=== PATIENT | female | born 1995 | race American Indian/Alaskan Native ===

== ENCOUNTER 2017-06-20 07:48 | Outpatient (CLI) | payer MEDICAID ==
[2017-06-20] MEDS ORDERED: VISTARIL PO PRN (10:36)
[2017-06-20 23:27] VITALS: BP 114/64
== END 2017-06-20 10:45 | disposition home or self-care (01) ==
LOC: TRG 07:48
PROVIDERS: ATTEND Obstetrics & Gynecology
DX: O47.1 False labor at or after 37 completed weeks of gestation (principal); Z3A.39 39 weeks gestation of pregnancy
CPT/HCPCS: 59025; Q0177

== ENCOUNTER 2017-06-20 17:08 | Inpatient (IN) | payer MEDICAID ==
[2017-06-20] MEDS ORDERED: BRETHINE SUB-Q PRN (17:45)
[2017-06-20] MEDS ORDERED: ZOFRAN IV PRN (17:45)
[2017-06-20] MEDS ORDERED: STADOL IV PRN (17:45)
[2017-06-20] MEDS ORDERED: XYLOCAINE 2% INFILTRATI NR (17:45)
[2017-06-20] MEDS ORDERED: MINERAL OIL PO PRN (17:45)
[2017-06-20] MEDS ORDERED: SUBLIMAZE IV PRN (17:45)
[2017-06-20] MEDS ORDERED: ePHEDrine SULFATE IV PRN (17:45)
--- NOTE | 2017-06-20 17:50 | History and Physical Report ---
History of Present Illness Date of examination: 06/20/17 Chief complaint: Labor and leaking fluid, 4cms (was 1.5 cms this morning) History of present illness: EDC Calculations by LMP: 06/27/2017 Past History : 2 Term Births: 0 Premature Births: 0 Living Children: 0 Para: 0 Mult. Births: 0 Prev : 0 Prev. attempt? 0 Aborta: 1 Elect. Ab: 0 Ectopics: 1 # 1 Delivery date: 2014 Delivery type: ectopic Delivery location: [facility] [place] Comments: methotrexate Past Medical History: Ectopic : 2014, Treated with methotrexate at [facility] Past Surgical History: negative Past Medical History Anesthesia Complications: negative Anemia: positive Autoimmune Disorder: negative Bleeding Disorder: negative Blood Transfusions: negative Breast Disease: negative Diabetes: negative Heart Disease: negative Hypertension: negative Hepatitis/Liver Disease: negative Kidney Disease/UTI: negative Neurologic/Epilepsy/Migraines: negative Phlebitis/Varicosities: negative Psychiatric: negative Pulmonary Disease/Asthma: negative Thyroid Disease: negative Hospitalizations: negative Surgery (Non-credit risk analyst): negative Abnormal PAP: negative, No pap- too young MAZIN Exposure: negative Infertility: negative Uterine Anomaly: negative Uterine Surgery (not C/S): negative Other Gynecologic Problems: negative Family Hx: no known family health hx - all healthy Social Hx: Single No ETOH, drugs or smoking Infection History Hx of STD: none HIV Risk Eval: no Hepatitis B Risk Eval: low risk Personal hx. of genital herpes: no Partner hx. of genital herpes: no Rash, Viral, or Febrile illness since last LMP? no Varicella/Chicken Pox Status: Unknown Genetic History Congenital Heart Defect: Mom: no Dad: no Moriah Disease: Mom: no Dad: no Thalassemia Mom: no Dad: no Neural Tube Defect Mom: no Dad: no Down's Syndrome Mom: no Dad: no Cirilo-Sachs Mom: no Dad: no Sickle Cell Disease/Trait Mom: no Dad: no Hemophilia Mom: no Dad: no Muscular Dystrophy Mom: no Dad: no Cystic Fibrosis Mom: no Dad: no [place] Chorea Mom: no Dad: no Mental Retardation Mom: no Dad: no Fragile X Mom: no Dad: no Other Genetic/Chromosomal Disorder Mom: no Dad: no Child w/other defect Mom: no Dad: no Enviromental Exposures Xray Exposure: no Medication, drug, or alcohol use since LMP: no Chemical/Other Exposure: no Exposure to Cat Liter: no Hx of Parvovirus (Fifth Disease): no Occupational Exposure to Children: none Active Medications: None Current Allergies (reviewed today): No known allergies Past History Past Medical History: no pertinent history Past Surgical History: no surgical history Social history: single - Obstetrical History Expected Date of Delivery: 06/27/17 Actual Gestation: 39 Week(s) 0 Day(s) : 2 Para: 0 Hx # Term Pregnancies: 0 Number of Pregnancies: 0 Spontaneous Abortions: 1 (ectopic) Induced : 0 Number of Living Children: 0 Medications and Allergies Allergies Allergy/AdvReac Type Severity Reaction Status Date / Time No Known Allergies Allergy Unverified 06/20/17 07:54 Home Medications Medication Instructions Recorded Confirmed Last Taken Type No Known Home Medications [No 06/20/17 06/20/17 Unknown History Reported Home Medications] Review of Systems All systems: negative - Physical Exam Breasts: Positive: normal Cardiovascular: Regular rate Lungs: Positive: Clear to auscultation, Normal air movement Abdomen: Positive: normal appearance, soft, normal bowel sounds Genitourinary (Female): Positive: normal external genitalia, normal perenium Vulva: both: normal Vagina: Positive: normal moisture Uterus: Positive: normal size, normal contour Anus/Rectum: Positive: normal perianal skin Extremities: Positive: normal Deep Tendon Reflex Grade: Normal +2 - Obstetrical Cervical Dilatation: 4 Cervical Effacement Percentage: 90 station: -1 Uterine Contraction Pattern: Regular Uterine Tone Measurement Phase: Contraction Uterine Contraction Intensity: Mild Results All other labs normal. Assessment and Plan 21y/o @ 39+1 weeks, second visit to triage today with ctx and now leaking amniotic fluid. GBS negative. Admission orders in chart. Dr. regalado aware. - Patient Problems (1) Cystic fibrosis carrier Current Visit: Yes Status: Acute Plan to address problem: FOC has not been tested to be evaluated after delivery (2) Active labor at term Current Visit: Yes Status: Acute (3) 39 weeks gestation of Current Visit: Yes Status: Acute
[2017-06-20] MEDS ORDERED: LACTATED RINGERS 1,000 ML IV SCH (18:00)
[2017-06-20] MEDS ORDERED: PITOCin/NS 30 UNIT/500ML 30 UNITS/500 ML BAG IV SCH (18:00)
[2017-06-20] MEDS ORDERED: PITOCin/NS 20 UNIT/1000ML DRIP 20 UNITS/1,000 ML BAG IV SCH (18:00)
[2017-06-20 19:29] LABS: Hematocrit 37.6 % (30.3-42.9); Hemoglobin 12.1 gm/dl (10.1-14.3); Mean Corpuscular HGB Conc 32 % (30-34); Mean Corpuscular Hemoglobin 29 pg (28-32); Mean Corpuscular Volume 90 fl (79-97); Platelet Count 245 K/mm3 (140-440); Red Blood Count 4.18 M/mm3 (3.65-5.03); Red Cell Distribution Width 13.5 % (13.2-15.2); White Blood Count 15.5 K/mm3 (4.5-11.0)
[2017-06-20] MEDS ORDERED: NARCAN 2 MG/2 ML IV PRN (20:35)
--- NOTE | 2017-06-20 20:35 | Anesthesia Consultation ---
Anesthesia Consult and Med Hx Date of service: 06/20/17 - Airway Anesthetic Teeth Evaluation: Good ROM Head & Neck: Adequate Mental/Hyoid Distance: Adequate Intubation Access Assessment: Probably Good - Pulmonary Exam CTA: Yes - Cardiac Exam Cardiac Exam: RRR - Pre-Operative Health Status ASA Pre-Surgery Classification: ASA2, Emergency Proposed Anesthetic Plan: Epidural, Spinal - Pulmonary Hx Asthma: No COPD: No Hx Pneumonia: No - Cardiovascular System Hx Hypertension: No - Central Nervous System Hx Seizures: No Hx Psychiatric Problems: No - Endocrine Hx Renal Disease: No Hx End Stage Renal Disease: No Hx Hypothyroidism: No Hx Hyperthyroidism: No - Hematic Hx Anemia: No Hx Sickle Cell Disease: No - Other Systems Hx Alcohol Use: No
[2017-06-20] MEDS ORDERED: fentaNYL-BUPIV 2 MCG/ML-0.125% 200 MCG/100 ML BAG EPIDURAL SCH (21:00)
--- NOTE | 2017-06-20 22:07 | Procedure Note ---
OB Delivery Note - Delivery Date of Delivery: 06/20/17 ( male) [facility] Specialist: ALEXEI BORJA Estimated blood loss: 200cc - Vaginal Delivery presentation: vertex Delivery position: OA Intrapartum events: meconium Delivery induction: none Delivery monitor: external FHT, external uterine Route of delivery: Delivery placenta: spontaneous Delivery cord: 3 umbilical vessels Episiotomy: none Delivery laceration: none Anesthesia: epidural Delivery comments: male del over intact perineum, handed to NICU after cord clamp to assess d/t mec stained fluid. Placenta del intact and complete, mec stained. Pit to IVF. Fundus firm, bleeding scant. no lacerations to repair. EBL 200, wt 5 #11oz, apgars 8/9. mother and infant remain LDR stable. - Infant A at 1 minute: 8 at 5 minutes: 9 Gender: Male (5#11)
[2017-06-21] MEDS ORDERED: MILK OF MAGNESIA PO PRN (00:10)
[2017-06-21] MEDS ORDERED: TYLENOL PO PRN (00:10)
[2017-06-21] MEDS ORDERED: PHENERGAN PO PRN (00:10)
[2017-06-21] MEDS ORDERED: SODIUM CHLORIDE FLUSH SYRINGE 10 ML IV NR (00:10)
[2017-06-21] MEDS ORDERED: NORCO 5/325 PO PRN (00:10)
[2017-06-21] MEDS ORDERED: DULCOLAX PR PRN (00:10)
[2017-06-21] MEDS ORDERED: BENADRYL PO PRN (00:10)
[2017-06-21] MEDS ORDERED: PITOCin/NS 20 UNIT/1000ML DRIP 20 UNITS/1,000 ML BAG IV SCH (00:10)
[2017-06-21] MEDS ORDERED: LANSINOH TP PRN (00:10)
[2017-06-21] MEDS ORDERED: TUCKS PAD TP PRN (00:10)
[2017-06-21] MEDS: MOTRIN PO SCH ×4 (00:50→23:52)
[2017-06-21 10:31] LABS: Hematocrit 33.5 % (30.3-42.9); Hemoglobin 11.1 gm/dl (10.1-14.3)
--- NOTE | 2017-06-21 12:51 | Progress Note ---
Assessment and Plan - Patient Problems (1) (normal spontaneous vaginal delivery) Current Visit: Yes Status: Acute Plan to address problem: -routine pp care -d/c home in am Subjective - Subjective Date of service: 06/21/17 Principal diagnosis: PPD#1 s/p Interval history: Pt doing well. All questions regarding circ were addressed and answered. Patient reports: appetite normal, voiding normally, pain well controlled : doing well Objective - Vital Signs Latest vital signs: Vital Signs Temp Pulse Resp BP Pulse Ox 06/21/17 08:00 98.5 F 77 18 111/58 06/21/17 04:00 98.6 F 71 18 118/64 06/21/17 00:00 98.6 F 63 16 119/74 06/20/17 23:25 97.8 F 97 H 16 114/64 06/20/17 22:30 97.7 F 87 18 128/61 99 06/20/17 22:15 98.0 F 87 18 133/62 99 06/20/17 22:00 97.7 F 103 H 18 136/84 99 06/20/17 19:34 98.3 F 98 H 19 120/80 99 Intake and Output 06/20/17 06/21/17 06/21/17 22:59 06:59 14:59 Intake Total 801 320 Output Total 1000 Balance -199 320 Intake: IV 251 PITOCin/NS 20 UNIT/1000ML 251 DRIP 20 units In 1,000 ml @ 125 mls/hr IV DIRECT RAINE Rx#:[id number] Oral 250 320 Intake, Free Water 300 Output: Urine 1000 Void 1000 Other: Total, Intake Amount 250 320 Total, Output Amount 400 # Voids Void 1 1 # Bowel Movements 0 Weight 58.513 kg Estimated Blood Loss 200 - Exam Breasts: Present: deferred Cardiovascular: Present: Normal S1, Normal S2 Lungs: Present: Clear to auscultation, Normal air movement Abdomen: Present: normal appearance, soft, normal bowel sounds. Absent: distention, tenderness, guarding Uterus: Present: normal, firm, fundal height below umbilicus. Absent: bogginess , tenderness Extremities: Present: normal Deep Tendon Reflex Grade: Normal +2 - Labs Labs: Abnormal lab results 06/20/17 Range/Units 19:09 WBC 15.5 H (4.5-11.0) K/mm3
[2017-06-21] MEDS: PRENATAL VITAMIN PO SCH (14:10)
[2017-06-21] MEDS: COLACE PO SCH ×2 (14:10→23:52)
[2017-06-21] MEDS ORDERED: BOOSTRIX IM ONE (22:08)
[2017-06-22] MEDS: MOTRIN PO SCH ×2 (06:51→11:23)
[2017-06-22] MEDS: PRENATAL VITAMIN PO SCH (11:22)
[2017-06-22] MEDS: COLACE PO SCH (12:11)
--- NOTE | 2017-06-22 13:18 | Discharge Summary ---
Providers - Providers Date of Admission: 06/20/17 17:44 Date of discharge: 06/22/17 Attending physician: LAUREN MAGANA Primary care physician: LAUREN MAGANA Hospitalization Reason for admission: other (see h&P) Delivery: Procedure details: see delivery note Episiotomy: other (see delivery note) Laceration: other (see delivery note) Incision: dry complications: none Discharge diagnosis: IUP at term delivered baby: male Hospital course: pt s/p . s/p routine pp care that was not complicated. Pt d/c home ppd#2. Condition at discharge: Good Disposition: DC-01 TO HOME OR SELFCARE - Discharge Diagnoses (1) (normal spontaneous vaginal delivery) Status: Acute Plan - Discharge Medications Prescriptions: Ibuprofen [Motrin 800 MG tab] 800 mg PO Q8HR PRN #30 tablet PRN Reason: Pain Lidocain2.5%/Prilocai2.5% [Emla] 5 gm TP ONCE PRN #1 tube PRN Reason: Pain - Provider Discharge Summary Additional instructions: [] Smoking cessation referral if applicable(refer to patient education folder for contact #) [] Refer to [facility] Booklet Call your doctor immediately for: * Fever > 100.5 * Heavy vaginal bleeding ( >1 pad per hour) * Severe persistent headache * Shortness of breath * Reddened, hot, painful area to leg or breast * Drainage or odor from incision. * Keep incision clean and dry at all times and follow doctor's instructions regarding bathing/showering - Follow up plan Follow up: LAUREN MAGANA MD [Primary Care Provider] - 7 Days
[2017-06-22 17:16] VITALS: BP 136/86
== END 2017-06-22 15:44 | disposition home or self-care (01) | DRG 775 ==
LOC: TRG 17:08 → LD 17:44 → OB 23:48
PROVIDERS: ADMIT Obstetrics & Gynecology; ATTEND Obstetrics & Gynecology
PROC: 10E0XZZ Delivery of Products of Conception, External Approach (ICD-10-PCS; principal; 2017-06-20)
PROC: 3E0S3CZ (ICD-10-PCS; 2017-06-20)
PROC: 00HU33Z Insertion of Infusion Device into Spinal Canal, Percutaneous Approach (ICD-10-PCS; 2017-06-20)
DX: O77.0 Labor and delivery complicated by meconium in amniotic fluid (principal); Z14.1 Cystic fibrosis carrier; Z3A.39 39 weeks gestation of pregnancy; Z37.0 Single live birth
CPT/HCPCS: 36415; 85014; 85018; 85027; 86592; 86850; 86900; 86901; 99211; G0463; J2590; J7120